=== PATIENT | female | born 1995 | race American Indian/Alaskan Native ===

== ENCOUNTER 2017-05-06 09:40 | Emergency (ER) | payer OTHER ==
[2017-05-06 09:51] VITALS: BP 118/73
[2017-05-06 11:03] LABS: Bacteria,Urine 1+ /HPF (Negative); Bilirubin,Urine NEG (Negative); Blood,Urine NEG (Negative); Color,Urine Yellow (Yellow); Mucus,Urine FEW /HPF; Nitrite,Urine NEG (Negative); Protein,Urine <15 mg/dL mg/dL (Negative); Urobilinogen,Urine < 2.0 mg/dL (<2.0)
[2017-05-06 11:13] LABS: HCG Qualitative,Urine Negative (Negative)
== END 2017-05-06 13:15 | disposition left against medical advice (07) ==
LOC: ED 09:40
DX: M79.1 Myalgia (principal); Z53.21 Procedure and treatment not carried out due to patient leaving prior to being seen by health care provider
CPT/HCPCS: 81001; 81025; 87086